=== PATIENT | female | born 1995 | race American Indian/Alaskan Native ===

== ENCOUNTER 2020-12-24 10:14 | Emergency (ER) | payer SELFPAY ==
[2020-12-24 10:55] VITALS: BP 136/86
[2020-12-24 11:51] LABS: Bilirubin,Urine NEG (Negative); Blood,Urine NEG (Negative); Color,Urine Yellow (Yellow); Mucus,Urine FEW /HPF; Protein,Urine <15 mg/dL mg/dL (Negative); Urobilinogen,Urine < 2.0 mg/dL (<2.0)
--- NOTE | 2020-12-24 12:26 | Emergency Department Report ---
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 Patient does report she is sexually active with one partner. Her last menstrual period was 12/25/2020. Patient denies any vaginal discharge no vaginal bleeding. Patient has not tried any [id number] medication. Patient denies any pain. Patient reports she does not have a primary care provider. MD Complaint: possible STD Onset/Timin -: days(s) Location: labia Severity: mild Consistency: intermittent Improves with: none Worsens with: none Are you Now?: No Last Menstrual Period: 11/25/20 EDC: 09/01/21 Associated Symptoms: rash. 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 Other details as noted in HPI Comment: All other systems reviewed and negative ED Past Medical Hx - Past Medical History Previous Medical History?: No - Surgical History Past Surgical History?: No ED Physical Exam - General Limitations: No Limitations General appearance: alert - Head Head exam: Present: atraumatic - Eye Eye exam: Present: normal appearance - ENT ENT exam: Present: mucous membranes moist, normal external ear exam - Neck Neck exam: Present: full ROM - Respiratory Respiratory exam: Absent: accessory muscle use - Cardiovascular Cardiovascular Exam: Present: tachycardia - External exam: Present: lesions (Raised follicular bumps. Nonerythematous nontender no swelling). Absent: erythema, swelling - Back Exam Back exam: Present: normal inspection - Neurological Exam Neurological exam: Present: alert, oriented X3, normal gait - Psychiatric Psychiatric exam: Present: normal affect, normal mood - Skin Skin exam: Present: warm, dry, intact, normal color. Absent: rash ED Course Vital Signs 12/24/20 10:52 Temperature 99.2 F Pulse Rate 107 H Respiratory 16 Rate Blood Pressure 136/86 O2 Sat by Pulse 100 Oximetry ED Medical Decision Making - Medical Decision Making 25-year-old -[place] female presents to the emergency room complaining of a rash and itching in her genital areas times a few days. Patient does report she is sexually active with one partner. Her last menstrual period was 12/25/2020. Patient denies any vaginal discharge no vaginal bleeding. Patient has not tried any [id number] medication. Patient denies any pain. Patient reports she does not have a primary care provider. Patient exam shows that she has folliculitis that is not inflamed or infected. I discussed with patient that it is from shaving her genital area. Discussed with patient she can try using shaving cream which will soften the hair some or she can use near which is a cream hair removal. Also discussed with patient that she should follow-up with a primary care provider for her complaint of intermittent vaginal discharge. Patient currently does not complain of vaginal discharge at this time. Patient verbalized understanding Recheck vitals patient's pulse was 96 and oxygenation was 100%. Critical care attestation.: If time is entered above; I have spent that time in minutes in the direct care of this critically ill patient, excluding procedure time. ED Disposition Clinical Impression: Folliculitis barbae Disposition: DC-01 TO HOME OR SELFCARE Is pt being admited?: No Does the pt Need Aspirin: No Condition: Stable Instructions: Folliculitis Additional Instructions: I recommend using Bales hair removal to prevent shaving bumps. You can also try using shaving cream to soften the hair prior to shaving. I recommend you to follow-up with the [facility]. Referrals: [facility] [Provider Group] - 3-5 Days Forms: Work/School Release Form(ED)
== END 2020-12-24 13:20 | disposition home or self-care (01) ==
LOC: ED 10:14
DX: L73.1 Pseudofolliculitis barbae (principal)
CPT/HCPCS: 81001; 99283